=== PATIENT | female | born 1945 ===

== ENCOUNTER 2021-08-22 05:59 | Inpatient (IN) ==
[2021-08-22] MEDS ORDERED: Lactated Ringers 1000 ml BAG 1,000 ML IV SCH (06:00)
[2021-08-22] MEDS ORDERED: Buffered Lidocaine 1% SYRIN 1 ml INTRADERM ONE (06:00)
[2021-08-22] MEDS ORDERED: Clindamycin 900 MG/D5W BAG 900 MG/50 ML BAG IVPB ONE (06:40)
[2021-08-22] MEDS ORDERED: Bupivacaine 0.25% SDV 30 ML ONE (07:30)
[2021-08-22] MEDS ORDERED: fentaNYL 100 mcg/2 ml 50 MCG/ML VIAL ONE (07:49)
[2021-08-22] MEDS ORDERED: Midazolam 2 mg/2 ml VIAL 1 mg/ml 2 ml VIAL (2 mg) ONE (07:49)
[2021-08-22] MEDS ORDERED: Ketamine HCL 50 mg/ml 10 ml VIAL (500 MG) ONE (07:49)
[2021-08-22] MEDS ORDERED: Rocuronium 50 mg VIAL 10 mg/ml 5 ml VIAL (50 mg) ONE ×2 (07:50→09:40)
[2021-08-22] MEDS ORDERED: BUPIVACAINE **LIPOSOME/PF 13.3 MG/ML (266MG/ 20ML) VIAL (RESTRICTED) INFIL ONE (08:00)
[2021-08-22] MEDS ORDERED: Tranexamic Acid 1 GM/100ML BAG 2,000 MG/200 ML BAG IV ONE (08:25)
[2021-08-22] MEDS ORDERED: Lidocaine 2% PF 5 ML VIAL ONE (08:30)
[2021-08-22] MEDS ORDERED: Propofol 10 MG/ML 20 ML BTL ONE (08:30)
[2021-08-22] MEDS ORDERED: EPHEDrine (Pressors) 50 MG/ML VIAL ONE (08:30)
[2021-08-22] MEDS ORDERED: Ondansetron 4 mg VIAL 2 MG/ML 2 ml VIAL IV PRN ×2 (10:59→12:28)
[2021-08-22] MEDS ORDERED: diPHENhydraMINE IV 50 MG/ML 1 ml VIAL (BENADRYL) IV PRN (10:59)
[2021-08-22] MEDS ORDERED: Magnesium Hydroxide LIQ 30 ML UDC PO PRN (10:59)
[2021-08-22] MEDS ORDERED: Morphine 2 MG/ML SYRINGE IV PRN (10:59)
[2021-08-22] MEDS ORDERED: diPHENhydraMINE 25 mg TAB PO PRN (10:59)
[2021-08-22] MEDS ORDERED: Ondansetron ODT 4 mg TAB 4 MG TAB PO PRN (10:59)
[2021-08-22] MEDS ORDERED: Lactulose 30 ml UDC PO PRN (10:59)
[2021-08-22] MEDS ORDERED: oxyCODONE/Acetamin 5/325 mg TAB ONE (11:47)
[2021-08-22] MEDS ORDERED: Naloxone 0.4 mg VIAL 0.4 mg/ml 1 ml VIAL IV PRN (12:28)
[2021-08-22] MEDS: Lactated Ringers 1000 ml BAG 1,000 ML IV SCH (12:35)
[2021-08-22] MEDS: Clindamycin 600 MG/D5W BAG 600 MG/50 ML BAG IV SCH (15:38)
[2021-08-22] MEDS: Magnesium Hydroxide LIQ 30 ML UDC PO SCH (21:49)
[2021-08-23] MEDS: Lactated Ringers 1000 ml BAG 1,000 ML IV SCH (00:43)
[2021-08-23] MEDS: Clindamycin 600 MG/D5W BAG 600 MG/50 ML BAG IV SCH ×2 (01:06→07:39)
[2021-08-23 06:19] LABS: Hematocrit 35 % (35-47); Hemoglobin 11.8 g/dL (12.0-16.0); Mean Platelet Volume 9.8 fL (7.4-10.4); Platelet Count 188 10^3/uL (150-450)
[2021-08-23 06:37] LABS: Calcium 8.5 mg/dL (8.6-10.3)
[2021-08-23 06:52] LABS: Potassium 5.4 mmol/L (3.5-5.0)
[2021-08-23] MEDS: Magnesium Hydroxide LIQ 30 ML UDC PO SCH (07:43)
[2021-08-23] MEDS ORDERED: Vitamin THERAPEUTIC TAB PO SCH (09:00)
[2021-08-23 12:01] VITALS: BP 150/63
== END 2021-08-23 14:35 | disposition home or self-care (01) | DRG 470 ==
LOC: AA 05:59 → SSU 12:45
PROVIDERS: ADMIT Orthopaedic Surgery Sports Medicine; ATTEND Orthopaedic Surgery Sports Medicine